=== PATIENT | male | born 1970 | race Hispanic/Latino ===

== ENCOUNTER 2019-09-12 05:29 | Day surgery (SDC) | payer MEDICAID ==
[~2019-09-12] VITALS: Ht 172.7 cm; Wt 77.1 kg
[~2019-09-12 05:29] MED LIST: ALPR2TAB2 PO; FLUT15.845 NS; IPRA4AER IH; LISI40TA4 PO; NAPR-1180 PO; OMEP20CA12 PO; ONDA-104 PO; PREG100C PO; TIZA4CAP8 PO
[2019-09-12] MEDS ORDERED: SODIUM CHLORIDE 0.9% 1000ML 1,000 ML IV ONE (06:18)
[2019-09-12 06:29] VITALS: BP 119/81
[2019-09-12] MEDS ORDERED: PROPOFOL 10 MG/ML 20ML VIAL IV ONE (07:09)
[2019-09-12] MEDS ORDERED: LIDOCAINE HCL 1% 20 ML VIAL ONE (07:09)
[2019-09-12 07:30] VITALS: BP 133/92
[2019-09-12 07:35] VITALS: BP 128/82
[2019-09-12 07:40] VITALS: BP 148/98
== END 2019-09-12 07:58 | disposition home or self-care (01) ==
LOC: DAH 05:29 → ENDO 05:29
PROVIDERS: ATTEND Internal Medicine
DX: K92.1 Melena (principal); D12.3 Benign neoplasm of transverse colon; K57.30 Diverticulosis of large intestine without perforation or abscess without bleeding; K64.1 Second degree hemorrhoids; I10 Essential (primary) hypertension; J44.9 Chronic obstructive pulmonary disease, unspecified; F41.9 Anxiety disorder, unspecified; F32.9 Major depressive disorder, single episode, unspecified; J45.909 Unspecified asthma, uncomplicated; M81.0 Age-related osteoporosis without current pathological fracture; M19.90 Unspecified osteoarthritis, unspecified site; G40.909 Epilepsy, unspecified, not intractable, without status epilepticus; F17.210 Nicotine dependence, cigarettes, uncomplicated; Z86.010 Personal history of colon polyps; Z79.899 Other long term (current) drug therapy; Z98.890 Other specified postprocedural states
CPT/HCPCS: 45380; 88305; A4215; A4221; A4222; A4223; A4606; A4615; A4663; J2704; J7030

== ENCOUNTER 2020-05-07 14:01 | Emergency (ER) | payer MEDICAID ==
[2020-05-07 14:44] LABS: BASOPHILS % (AUTO) 0.4 % (0.0-5.0); EOSINOPHILS % (AUTO) 0.7 % (0.0-8.0); HEMATOCRIT 52.1 % (42-54); LYMPHOCYTES % (AUTO) 15.8 % (21.0-51.0); MEAN CORPUSCULAR HEMOGLOBIN 29.2 pg (27.0-33.0); MEAN CORPUSCULAR VOLUME 85.8 fL (79-99); MONOCYTES % (AUTO) 8.9 % (3.0-13.0); PLATELET COUNT (AUTO) 256 K/uL (130-400); RED BLOOD CELL COUNT(AUTO) 6.07 MIL/uL (4.50-6.20); RED CELL DISTRIBUTION WIDTH 14.2 % (11.0-15.5); WHITE BLOOD COUNT (AUTO) 8.4 K/uL (4.8-10.8)
[2020-05-07 15:02] LABS: CREATININE 1.2 mg/dL (0.5-1.5); POTASSIUM 3.7 mmol/L (3.5-5.1)
[2020-05-07 15:07] LABS: ALBUMIN 3.7 g/dL (3.5-5.0); BILIRUBIN,DIRECT 0.2 mg/dL (0.0-0.3); BILIRUBIN,TOTAL 0.7 mg/dL (0.2-1.0); TOTAL PROTEIN, SERUM 7.4 g/dL (6.0-8.3)
[2020-05-07] MEDS ORDERED: ONDANSETRON HCL 4 MG/2 ML VIAL ONE (17:09)
== END 2020-05-07 17:46 | disposition home or self-care (01) ==
LOC: EDH 14:01
DX: A08.4 Viral intestinal infection, unspecified (principal); I10 Essential (primary) hypertension; Z20.828 Contact with and (suspected) exposure to other viral communicable diseases; F41.9 Anxiety disorder, unspecified; K21.9 Gastro-esophageal reflux disease without esophagitis
CPT/HCPCS: 36415; 71045; 80048; 80076; 82550; 83690; 84484; 85025; 87426; 87804 ×2; 93005; 96374; 99285; J2405; U0003

== ENCOUNTER 2020-06-20 12:55 | Emergency (ER) | payer MEDICAID ==
[2020-06-20] MEDS ORDERED: HYOSCYAMINE SULFATE 0.125 MG TAB.SUBL SL ONE (13:46)
[2020-06-20] MEDS ORDERED: ONDANSETRON 4 MG TABLET ONE (13:46)
[2020-06-20 14:15] LABS: BASOPHILS % (AUTO) 0.4 % (0.0-5.0); EOSINOPHILS % (AUTO) 1.6 % (0.0-8.0); HEMATOCRIT 44.6 % (42-54); LYMPHOCYTES % (AUTO) 17.2 % (21.0-51.0); MEAN CORPUSCULAR HEMOGLOBIN 29.2 pg (27.0-33.0); MEAN CORPUSCULAR HGB CONC 33.9 g/dL (32.0-36.0); MEAN CORPUSCULAR VOLUME 86.3 fL (79-99); MONOCYTES % (AUTO) 7.6 % (3.0-13.0); PLATELET COUNT (AUTO) 229 K/uL (130-400); RED BLOOD CELL COUNT(AUTO) 5.17 MIL/uL (4.50-6.20); RED CELL DISTRIBUTION WIDTH 14.3 % (11.0-15.5); WHITE BLOOD COUNT (AUTO) 8.3 K/uL (4.8-10.8)
[2020-06-20 14:25] LABS: CREATININE 1.2 mg/dL (0.5-1.5); POTASSIUM 3.9 mmol/L (3.5-5.1)
[2020-06-20 14:30] LABS: ALBUMIN 3.3 g/dL (3.5-5.0); BILIRUBIN,TOTAL 0.4 mg/dL (0.2-1.0)
== END 2020-06-20 15:57 | disposition home or self-care (01) ==
LOC: EDH 12:55
DX: R19.7 Diarrhea, unspecified (principal); Z20.828 Contact with and (suspected) exposure to other viral communicable diseases; F41.9 Anxiety disorder, unspecified; K21.9 Gastro-esophageal reflux disease without esophagitis; I10 Essential (primary) hypertension; Z87.891 Personal history of nicotine dependence
CPT/HCPCS: 36415; 71045; 80053; 84484; 85025; 87426; 93005; 99285; Q0162

== ENCOUNTER 2022-10-10 15:43 | Emergency (ER) | payer MEDICAID ==
[~2022-10-10] VITALS: Ht 170.2 cm; Wt 71.2 kg
[~2022-10-10 15:43] MED LIST changes: +AEC81 PO; +ALPR2TAB7 PO; +AMLO5TAB4 PO; +ATOR40TA69 PO; +CLOP-31 PO; +FURO20TA4 PO; +Folic Acid/Vitamin B Comp W-C PO; +GABA100C PO; +LEVE750T10 PO; +LISI20TA24 PO; -LISI40TA4 PO; -NAPR-1180 PO; -OMEP20CA12 PO; +PANT40TA PO; -PREG100C PO; +ZOLP10TA2 PO
[2022-10-10] MEDS ORDERED: ACET-2079 PO (16:07)
[2022-10-10 16:09] VITALS: BP 115/72
== END 2022-10-10 16:19 | disposition home or self-care (01) ==
LOC: EDH 15:43
DX: I73.9 Peripheral vascular disease, unspecified (principal); G89.18 Other acute postprocedural pain; I10 Essential (primary) hypertension; J44.9 Chronic obstructive pulmonary disease, unspecified; F20.9 Schizophrenia, unspecified; F32.A Depression, unspecified; F41.9 Anxiety disorder, unspecified; F17.200 Nicotine dependence, unspecified, uncomplicated; Z79.899 Other long term (current) drug therapy; Z79.82 Long term (current) use of aspirin; Z98.890 Other specified postprocedural states

== ENCOUNTER 2022-10-29 11:54 | Emergency (ER) | payer MEDICAID ==
[~2022-10-29] VITALS: Ht 170.2 cm; Wt 68.0 kg
[~2022-10-29 11:54] MED LIST changes: +ACET-2079 PO
[2022-10-29 12:30] LABS: INR 1.08 (0.85-1.15); PROTHROMBIN TIME 11.7 SEC (9.6-11.6)
[2022-10-29 12:35] LABS: ALBUMIN 4.1 g/dL (3.5-5.0); CREATININE 0.9 mg/dL (0.5-1.5)
[2022-10-29 12:41] LABS: BASOPHILS % (AUTO) 0.4 % (0.0-5.0); EOSINOPHILS % (AUTO) 0.6 % (0.0-8.0); HEMATOCRIT 41.5 % (42-54); LYMPHOCYTES % (AUTO) 17.3 % (21.0-51.0); MEAN CORPUSCULAR VOLUME 71.8 fL (79-99); NEUTROPHILS % (AUTO) 75.3 % (40.0-77.0); PLATELET COUNT (AUTO) 328 K/uL (130-400); RED BLOOD CELL COUNT(AUTO) 5.78 MIL/uL (4.50-6.20); RED CELL DISTRIBUTION WIDTH 26.6 % (11.0-15.5); WHITE BLOOD COUNT (AUTO) 7.8 K/uL (4.8-10.8)
[2022-10-29] MEDS ORDERED: ONDANSETRON 4MG INJ IVP ONE ×2 (13:30→17:00)
[2022-10-29 15:22] LABS: AMPHET/METH SCREEN,URINE NEGATIVE (NEGATIVE); BARBITURATE SCREEN, URINE NEGATIVE (NEGATIVE); BENZODIAZEPINES SCREEN,URINE NEGATIVE (NEGATIVE); CANNABINOID SCREEN,URINE POSITIVE (NEGATIVE); COCAINE SCREEN,URINE POSITIVE (NEGATIVE); OPIATE SCREEN,URINE NEGATIVE (NEGATIVE); PHENCYCLIDINE SCREEN,URINE NEGATIVE (NEGATIVE)
[2022-10-29] MEDS ORDERED: PANT40TA55 PO (16:26)
[2022-10-29] MEDS ORDERED: 0.9%NACL 1000ML 1,000 ML IV ONE (16:30)
[2022-10-29] MEDS ORDERED: PANTOPRAZOLE 40 MG/VIAL IVP ONE (16:30)
[2022-10-29] MEDS ORDERED: IOHEXOL 350 MG/ML 100ML INFUS..BTL IV ONE (17:09)
[2022-10-29 23:46] VITALS: BP 135/83
== END 2022-10-29 23:54 | disposition home or self-care (01) ==
LOC: EDH 11:54
DX: K29.70 Gastritis, unspecified, without bleeding (principal); K27.9 Peptic ulcer, site unspecified, unspecified as acute or chronic, without hemorrhage or perforation; F14.10 Cocaine abuse, uncomplicated; F12.10 Cannabis abuse, uncomplicated; I10 Essential (primary) hypertension; J44.9 Chronic obstructive pulmonary disease, unspecified; F20.9 Schizophrenia, unspecified; Z88.8 Allergy status to other drugs, medicaments and biological substances; Z79.899 Other long term (current) drug therapy
CPT/HCPCS: 99285; 74177; 96374; 96375; 82270; 84484; 80053; 80305; 85025; 85610; 86850; 86900; 86901; 36415; 96376; 93005; J7030; J2405 ×2; Q9967; S0164; C9113

== ENCOUNTER 2023-01-23 15:33 | Emergency (ER) | payer MEDICAID ==
[~2023-01-23] VITALS: Ht 170.2 cm; Wt 72.6 kg
[~2023-01-23 15:33] MED LIST changes: +PANT40TA55 PO
[2023-01-23 17:34] LABS: BASOPHILS % (AUTO) 0.3 % (0.0-5.0); EOSINOPHILS % (AUTO) 1.6 % (0.0-8.0); HEMATOCRIT 45.4 % (42-54); MEAN CORPUSCULAR HEMOGLOBIN 25.3 pg (27.0-33.0); MEAN CORPUSCULAR HGB CONC 31.5 g/dL (32.0-36.0); MEAN CORPUSCULAR VOLUME 80.2 fL (79-99); MONOCYTES % (AUTO) 6.8 % (3.0-13.0); NEUTROPHILS % (AUTO) 64.2 % (40.0-77.0); PLATELET COUNT (AUTO) 370 K/uL (130-400); RED BLOOD CELL COUNT(AUTO) 5.66 MIL/uL (4.50-6.20); RED CELL DISTRIBUTION WIDTH 16.3 % (11.0-15.5); WHITE BLOOD COUNT (AUTO) 6.7 K/uL (4.8-10.8)
[2023-01-23 17:46] LABS: CREATININE 1.1 mg/dL (0.5-1.5); POTASSIUM 3.8 mmol/L (3.5-5.1)
[2023-01-23 17:51] LABS: ALBUMIN 4.1 g/dL (3.5-5.0)
[2023-01-23 19:03] VITALS: BP 129/82
[2023-01-23] MEDS ORDERED: GABA300C PO (19:29)
[2023-01-23] MEDS ORDERED: IBUP-2076 PO (19:29)
== END 2023-01-23 19:42 | disposition home or self-care (01) ==
LOC: EDH 15:33
DX: G62.9 Polyneuropathy, unspecified (principal); I10 Essential (primary) hypertension; F17.200 Nicotine dependence, unspecified, uncomplicated; F20.9 Schizophrenia, unspecified; F32.A Depression, unspecified; F41.9 Anxiety disorder, unspecified; J44.9 Chronic obstructive pulmonary disease, unspecified; Z79.82 Long term (current) use of aspirin; Z79.899 Other long term (current) drug therapy; Z86.73 Personal history of transient ischemic attack (TIA), and cerebral infarction without residual deficits; Z98.890 Other specified postprocedural states
CPT/HCPCS: 36415; 80053; 85025

== ENCOUNTER 2024-06-15 12:14 | Emergency (ER) | payer MEDICAID ==
[~2024-06-15] VITALS: Ht 170.2 cm; Wt 77.1 kg
[~2024-06-15 12:14] MED LIST changes: +GABA300C PO; +IBUP-2076 PO
[2024-06-15] MEDS: leveTIRACEtam 500 MG/5 ML SD VIAL IV ONE ×2 (12:32)
--- NOTE | 2024-06-15 12:32 | NUR ---
SEIZURE PRECAUTIONS APPLIED
[2024-06-15] MEDS ORDERED: LIDOCAINE 1%-EPI 1:100,000 20 ML VIAL IJ STA (12:38)
--- NOTE | 2024-06-15 12:48 | NUR ---
PATIENT GIVEN URINAL FOR UA COLLECTION
--- NOTE | 2024-06-15 12:49 | NUR ---
ORDERED LIDOCAINE 1% WITH EPI ADMINISTERED BY DR AYALA AT BEDSIDE
[2024-06-15 12:59] LABS: BASOPHILS # (AUTO) 0.03 K/uL (0.00-0.20); BASOPHILS % (AUTO) 0.3 % (0.0-5.0); EOSINOPHILS # (AUTO) 0.05 K/uL (0.00-0.70); EOSINOPHILS % (AUTO) 0.5 % (0.0-8.0); HEMATOCRIT 50.9 % (42-54); IMMATURE GRANULOCYTE ABSOLUTE 0.04 K/uL (0-1); LYMPHOCYTES # (AUTO) 0.7 K/uL (1.0-4.8); LYMPHOCYTES % (AUTO) 7.2 % (21.0-51.0); MEAN CORPUSCULAR HEMOGLOBIN 30.2 pg (27.0-33.0); MEAN CORPUSCULAR HGB CONC 33.6 g/dL (32.0-36.0); MEAN CORPUSCULAR VOLUME 89.9 fL (79-99); MONOCYTES # (AUTO) 0.5 K/uL (0.1-1.0); MONOCYTES % (AUTO) 4.9 % (3.0-13.0); NEUTROPHILS # (AUTO) 8.3 K/uL (1.8-7.7); NEUTROPHILS % (AUTO) 86.7 % (40.0-77.0); PLATELET COUNT (AUTO) 237 K/uL (130-400); RED BLOOD CELL COUNT(AUTO) 5.66 MIL/uL (4.50-6.20); WHITE BLOOD COUNT (AUTO) 9.6 K/uL (4.8-10.8)
[2024-06-15 13:06] LABS: CREATININE 1.1 mg/dL (0.5-1.3); POTASSIUM 4.1 mmol/L (3.5-5.1)
[2024-06-15 13:28] LABS: AMPHET/METH SCREEN,URINE NEGATIVE (NEGATIVE); BARBITURATE SCREEN, URINE NEGATIVE (NEGATIVE); BENZODIAZEPINES SCREEN,URINE NEGATIVE (NEGATIVE); CANNABINOID SCREEN,URINE POSITIVE (NEGATIVE); COCAINE SCREEN,URINE NEGATIVE (NEGATIVE); OPIATE SCREEN,URINE NEGATIVE (NEGATIVE); PHENCYCLIDINE SCREEN,URINE NEGATIVE (NEGATIVE)
--- NOTE | 2024-06-15 13:30 | ERN ---
ED Note History of Present Illness Stated Complaint: SEIZURES Chief Complaint: Seizure Time Seen by MD: 12:23 Time Seen by Midlevel: 12:28 Dictation: 53-YEAR-OLD MALE WITH A HISTORY OF SEIZURES, HYPERTENSION, AND CHOLESTEROL COMING IN STATUS POST SEIZURE. PATIENT STATES SHE WAS AT THE DAYCARE AND HE WAS SITTING DOWN AND HE HAD A SEIZURE. NO TRAUMA, PER EMS PATIENT WAS ASSISTED TO THE GROUND. PATIENT STATES HE DOES NOT KNOW IF HE TOOK HIS KEPPRA TODAY. NO OTHER COMPLAINTS AT THIS TIME. Allergies: Coded Allergies: trazodone (Unverified Allergy, Severe, SHORTNESS OF BREATH, 09/26/22) Home Meds Active Scripts Ibuprofen (Ibuprofen) 400 Mg Tablet, 400 MG PO TIDP, #30 TAB Prov:HALINA HOSKINS MD 01/23/23 Gabapentin (Neurontin) 300 Mg Capsule, 300 MG PO TID, #60 CAP Prov:HALINA HOSKINS MD 01/23/23 Pantoprazole Sodium (Protonix) 40 Mg Ectab, 40 MG PO DAILY for 30 Days, #30 TAB.EC Prov:SERENITY AYALA MD 10/29/22 Acetaminophen with Codeine (Acetaminophen-Cod #3 Tablet) 1 Each Tablet, 1 EACH PO TID, #20 TAB Prov:KAREN COLLINS MD 10/10/22 Furosemide (Furosemide) 20 Mg Tablet, 20 MG PO BID for 30 Days, #60 TAB Prov:NAKUL ANGEL Jr., MD 10/06/22 [Folic Acid/Vitamin B Comp W-C] 1 CAP TAB No Conflict Check, 1 CAP PO Q24H for 30 Days, #30 CAP 0 Refills Prov:NAKUL ANGEL Jr., MD 10/05/22 Levetiracetam (Levetiracetam) 750 Mg Tablet, 750 MG PO BID for sEIZURE DO for 30 Days, #60 TAB 1 Refill Prov:NAKUL ANGEL Jr., MD 10/05/22 Gabapentin (Neurontin) 100 Mg Capsule, 300 MG PO TID for 30 Days, #90 CAP 1 Refill Prov:NAKUL ANGEL Jr., MD 10/05/22 Pantoprazole Sodium (Protonix) 40 Mg Tablet.dr, 40 MG PO BIDAC for GI PROPHYLAXIS ON DAPT for 90 Days, #180 TAB 1 Refill Prov:NAKUL ANGEL Jr., MD 10/05/22 Amlodipine Besylate (Norvasc 5Mg Tab) 5 Mg Tablet, 5 MG PO DAILY for HYPERTENSION for 90 Days, #90 TAB 1 Refill Prov:NAKUL ANGEL Jr., MD 10/05/22 Aspirin (ASPIRIN 81 MG ECTAB) 81 Mg Ectab, 81 MG PO DAILY for PAD/BYPASS for 90 Days, #90 TAB.EC 3 Refills Take 1 aspirin daily for 1 year (until 10/02/2023) or unless otherwise specified by research/program director. Prov:NAKUL ANGEL Jr., MD 10/05/22 Clopidogrel Bisulfate (Plavix) 75 Mg Tablet, 75 MG PO DAILY for PVD/Bypass for 90 Days, #90 TAB 3 Refills Take one clopidogrel tablet daily for 1 year (until 10/02/2023) or unless otherwise specified by research/program director. Prov:NAKUL ANGEL Jr., MD 10/05/22 Atorvastatin Calcium (LIPITOR) 40 Mg Tablet, 40 MG PO HS for hyperlipidemia for 90 Days, #90 TAB 1 Refill Prov:NAKUL ANGEL Jr., MD 10/05/22 Lisinopril (Lisinopril) 20 Mg Tablet, 20 MG PO DAILY for 30 Days, #30 TAB 3 Refills Prov:NAKUL ANGEL Jr., MD 10/05/22 Reported Medications Zolpidem Tartrate (Ambien) 10 Mg Tablet, 10 MG PO HS 09/27/22 Alprazolam (Alprazolam) 2 Mg Tablet, 1 TAB PO TIDP PRN for ANXIETY/AGITATION 09/27/22 Ondansetron HCl (Ondansetron HCl) 4 Mg Tablet, 4 MG PO AD, TAB 09/11/19 Fluticasone Propionate (Fluticasone Propionate) 15.8 Ml Gibson.susp, 15.8 ML NS DAILY 09/11/19 Tizanidine HCl (Tizanidine HCl) 4 Mg Capsule, 4 MG PO Q8 HRS, CAP 09/11/19 Alprazolam (Xanax) 2 Mg Tablet, 2 MG PO DAILY, TAB 09/11/19 Ipratropium/Albuterol Sulfate (Combivent Respimat Inhal Gibson) 4 Gm Aer.w.adap, 4 GM IH AD 09/11/19 Past Medical History Past Medical History: Diabetes-Type II, Hypertension, Seizure Surgical History: Other Surgical History Other: L KNEE, R EYE SX. Social History: Smokers, Negative Review of System Dictation CONSTITUTIONAL: NEGATIVE FOR FEVER,CHILLS, AND WEIGHT LOSS EYES: NEGATIVE FOR INJURY, PAIN,REDNESS, AND DISCHARGE ENT: NEGATIVE FOR INJURY,PAIN OR SWELLING CARDIOVASCULAR: NEGATIVE FOR CHEST PAIN, PALPITATIONS, AND EDEMA RESPIRATORY: NEGATIVE FOR SHORTNESS OF BREATH, COUGH, AND WHEEZING, ABDOMEN/GI: NEGATIVE FOR ABDOMINAL PAIN, NAUSEA, VOMITING, DIARRHEA, AND CONSTIPATION BACK: NEGATIVE FOR INJURY AND PAIN : NEGATIVE FOR INJURY, BLEEDING AND DISCHARGE MS/EXTREMITY: NEGATIVE FOR INJURY AND DEFORMITY SKIN: NEGATIVE FOR RASH, AND DISCOLORATION NEURO: NEGATIVE FOR HEADACHE, WEAKNESS, NUMBNESS, TINGLING, ONE SEIZURE TODAY PSYCH: NEGATIVE FOR SUICIDE IDEATION, HOMICIDAL IDEATION, AND HALLUCINATIONS Review of Systems: was completed Initial Vital Sign VS Vital Signs Date Time Temp Pulse Resp B/P (MAP) Pulse Ox O2 Delivery O2 Flow Rate FiO2 06/15/24 12:16 97.5 83 16 149/91 98 Room Air 0 06/15/24 12:27 21 Physical Exam Dictation CONSTITUTIONAL: NEGATIVE FOR FEVER,CHILLS, AND WEIGHT LOSS EYES: NEGATIVE FOR INJURY, PAIN,REDNESS, AND DISCHARGE ENT: 1 IN LACERATION TO THE RIGHT LATERAL ASPECT OF THE TONGUE, PATIENT BIT HIS TONGUE WHILE HAVING A SEIZURE CARDIOVASCULAR: NEGATIVE FOR CHEST PAIN, PALPITATIONS, AND EDEMA RESPIRATORY: NEGATIVE FOR SHORTNESS OF BREATH, COUGH, AND WHEEZING, ABDOMEN/GI: NEGATIVE FOR ABDOMINAL PAIN, NAUSEA, VOMITING, DIARRHEA, AND CONSTIPATION BACK: NEGATIVE FOR INJURY AND PAIN : NEGATIVE FOR INJURY, BLEEDING AND DISCHARGE MS/EXTREMITY: NEGATIVE FOR INJURY AND DEFORMITY SKIN: NEGATIVE FOR RASH, AND DISCOLORATION NEURO: NEGATIVE FOR HEADACHE, WEAKNESS, NUMBNESS, TINGLING, AND SEIZURE PSYCH: NEGATIVE FOR SUICIDE IDEATION, HOMICIDAL IDEATION, AND HALLUCINATIONS Results (Laboratory/Radiology) Laboratory/Radiology Laboratory Tests Test 06/15/24 12:47 White Blood Count 9.6 K/uL (4.8-10.8) Red Blood Count 5.66 MIL/uL (4.50-6.20) Hemoglobin 17.1 g/dL (14.0-18.0) Hematocrit 50.9 % (42-54) Mean Corpuscular Volume 89.9 fL (79-99) Mean Corpuscular Hemoglobin 30.2 pg (27.0-33.0) Mean Corpuscular Hemoglobin Concent 33.6 g/dL (32.0-36.0) Red Cell Distribution Width 14.0 % (11.0-15.5) Platelet Count 237 K/uL (130-400) Mean Platelet Volume 10.0 fL (7.5-10.5) Immature Granulocyte % (Auto) 0.4 % (0-1) Neutrophils (%) (Auto) 86.7 % (40.0-77.0) H Lymphocytes (%) (Auto) 7.2 % (21.0-51.0) L Monocytes (%) (Auto) 4.9 % (3.0-13.0) Eosinophils (%) (Auto) 0.5 % (0.0-8.0) Basophils (%) (Auto) 0.3 % (0.0-5.0) Neutrophils # (Auto) 8.3 K/uL (1.8-7.7) H Lymphocytes # (Auto) 0.7 K/uL (1.0-4.8) L Monocytes # (Auto) 0.5 K/uL (0.1-1.0) Eosinophils # (Auto) 0.05 K/uL (0.00-0.70) Basophils # (Auto) 0.03 K/uL (0.00-0.20) Absolute Immature Granulocyte (auto 0.04 K/uL (0-1) Nucleated Red Blood Cells 0.0 % (0.0-0.19) White Cell Morphology Comment See comments Sodium Level 140 mmol/L (136-145) Potassium Level 4.1 mmol/L (3.5-5.1) Chloride Level 101 mmol/L (101-111) Carbon Dioxide Level 28 mmol/L (21-32) Blood Urea Nitrogen 10 mg/dL (7-18) Creatinine 1.1 mg/dL (0.5-1.3) Glomerular Filtration Rate Calc 80 mL/min (>90) Random Glucose 113 mg/dL (70-105) H Total Calcium 9.4 mg/dL (8.5-10.1) Labs Reviewed?: Yes ED Course ED Course Orders Procedure Category Date Status Time Levetiracetam 500 PHA 06/15/24 Complete Mg/5 Ml Sd V (Keppra 5 12:30 Levetiracetam 500 PHA 06/15/24 Complete Mg/5 Ml Sd V (Keppra 5 12:28 Cbc With Differential LAB 06/15/24 Complete 12:27 Basic Metabolic Panel LAB 06/15/24 Complete 12:27 Keppra LAB 06/15/24 In Process (Levetiracetam) Level 12:27 Drug Screen Urine LAB 06/15/24 In Process 12:27 Lidocaine 1%-Epi PHA 06/15/24 Complete 1:100,000 (Lidocaine 12:38 Current Medications Medications (Trade) Dose Ordered Sig/Ruby Route PRN Reason Start Time Stop Time Status Last Admin Dose Admin Levetiracetam (kepPRA 500 MG/5 ML SD VIAL) 500 mg STK-MED ONCE IV 06/15/24 12:28 06/15/24 12:28 DC Levetiracetam (kepPRA 500 MG/5 ML SD VIAL) 1,000 mg ONCE ONCE IV 06/15/24 12:30 06/15/24 12:31 DC 06/15/24 12:32 Lidocaine/ Epinephrine (Lidocaine 1%-Epi 1:100,000) 20 ml ONCE STAT IJ 06/15/24 12:38 06/15/24 12:39 DC Vital Signs Date Time Temp Pulse Resp B/P (MAP) Pulse Ox O2 Delivery O2 Flow Rate FiO2 06/15/24 12:27 97.5 83 16 149/91 97 Room Air* 0 21 06/15/24 12:16 97.5 83 16 149/91 98 Room Air 0 Medical Decision Making MDM MDM: 53-YEAR-OLD MALE WITH A HISTORY OF SEIZURES, HYPERTENSION, AND CHOLESTEROL COMING IN STATUS POST SEIZURE. PATIENT STATES SHE WAS AT THE DAYCARE AND HE WAS SITTING DOWN AND HE HAD A SEIZURE. NO TRAUMA, PER EMS PATIENT WAS ASSISTED TO THE GROUND. PATIENT STATES HE DOES NOT KNOW IF HE TOOK HIS KEPPRA TODAY. NO OTHER COMPLAINTS AT THIS TIME. CBC SHOWS NO LEUKOCYTOSIS, NO ANEMIA, NO THROMBOCYTOPENIA. CHEMISTRY SHOWS NO ELECTROLYTE ABNORMALITY. MILD HYPERGLYCEMIA AT 1:13 A.M.. TOXICOLOGY IS POSITIVE FOR THC. PATIENT WAS GIVEN 1 G OF KEPPRA IN THE ER IV. SEE PROCEDURE NOTE FOR LACERATION REPAIR . DISCUSSED FINDINGS WITH PATIENT, EDUCATED PATIENT HE NEEDS TO BE COMPLIANT WITH HIS SEIZURE MEDICATIONS. PATIENT STATES HE USUALLY USE BUT CAN NOT REMEMBER IF HE TOOK IT THIS MORNING. PATIENT STATES HE DOES HAVE MEDICATIONS AT HOME FOR THE SEIZURE. PATIENT STATES ONCE IN A WHILE HE DOES SMOKE, EDUCATED PATIENT ON CESSATION OF DRUG USE. EDUCATED FOLLOW UP WITH PCP IN 1-2 DAYS. EDUCATED THE SUTURES WERE DISSOLVE ON THEIR OWN, TBI RETURN TO THE ER IF ANY SYMPTOMS OF INFECTION. DIFFERENTIAL DIAGNOSIS: PSEUDO-SEIZURE, NONCOMPLIANCE MEDICATION, ELECTROLYTE ABNORMALITY, NONTHERAPEUTIC LEVEL RATIONALE: TESTS CONSIDERED AND ORDERED SECONDARY TO SHARED DECISION MAKING INCLUDE: PREVIOUS OUTSIDE RECORDS REVIEWED: OLD ER VISITS. RISK OF COMPLICATION AND/OR MORBIDITY OR MORTALITY OF PATIENT MANAGEMENT: NONE MEDICATIONS-PER MEDICATION RECONCILIATION NEED FOR HOSPITALIZATION: PATIENT DOES NOT MEET CRITERIA FOR HOSPITALIZATION. NEED FOR EMERGENCY MAJOR/MINOR SURGERY: NO THERE ARE NO SOCIAL CONCERNS WITH THIS PATIENT. PRESCRIPTION DRUG MANAGEMENT PRESCRIPTIONS WILL INCLUDE SYMPTOMATIC CARE PATIENT'S PRIOR EXTERNAL MEDICAL RECORDS FROM OTHER ER VISITS WERE REVIEWED BY ME INDICATED. PRIOR TESTING AND RESULTS FROM PREVIOUS VISITS WERE REVIEWED. PRIOR TESTS WERE TAKEN INTO ACCOUNT WITH MEDICAL DECISION MAKING AND RESOURCE UTILIZATION, INDEPENDENT HISTORIAN/HISTORIANS WERE USED TO OBTAIN COMPLETE MEDICAL HISTORY. I INDEPENDENTLY INTERPRETED THE TEST THAT WERE PERFORMED, RESULTS WERE REVIEWED BY ME AND CONSIDERED FINDINGS ON RADIOLOGY IF ORDERED. MEDICAL MANAGEMENT AND EXAMINATION INTERPRETATION DISCUSSIONS WERE HAD BY ME WITH OTHER QUALIFIED HEALTHCARE PROFESSIONALS INDICATED FOR THE PATIENT'S CARE. Procedure Wound Location: mouth Wound Length (cm): 2 Wound's Depth, Shape: superficial Wound Explored: clean Irrigated w/ Saline (ccs): 5 Betadine Prep?: No Anesthesia: Lidocaine w/ Epi Volume Anesthetic (ccs): 2 Wound Debrided: minimal Wound Repaired With: sutures Suture Size/Type: 4:0 Number of Sutures: 3 DX & DISP Disposition: Discharge Departure Impression: Primary Impression: Seizure Condition: Stable Additional Instructions: YOU HAVE THREE SUTURES, HOWEVER THE SUTURES WILL DISSOLVE ON THEIR OWN YOU DO NOT NEED TO RETURN BACK TO THE ER UNLESS THERE IS OTHER SYMPTOMS OF INFECTION. STOP SMOKING THC, TAKING MEDICATIONS FOR YOUR SEIZURES PRESCRIBED. Referrals: ORTIZ TRUJILLO MD (PCP) Time of Disposition: 13:30 I have reviewed the case, and I agree with, Diagnosis and Plan DANN PULLIAM NP Jun 15, 2024 13:30
[2024-06-15 13:43] VITALS: BP 144/100; PULSE 76; RESP 14; TEMP 97.5; O2SAT 98
== END 2024-06-15 13:45 | disposition home or self-care (01) ==
LOC: EDH 12:14
DX: S01.512A Laceration without foreign body of oral cavity, initial encounter (principal); R56.9 Unspecified convulsions; E11.9 Type 2 diabetes mellitus without complications; I10 Essential (primary) hypertension; F17.200 Nicotine dependence, unspecified, uncomplicated; Z79.02 Long term (current) use of antithrombotics/antiplatelets; Z79.82 Long term (current) use of aspirin; Z79.899 Other long term (current) drug therapy; X58.XXXA Exposure to other specified factors, initial encounter; Y93.89 Activity, other specified; Y92.89 Other specified places as the place of occurrence of the external cause; Y99.8 Other external cause status
CPT/HCPCS: 99284; 96365; 80048; 80305; 85025; 36415; 12011; 80177; J3490; J1953